=== PATIENT | male | born 1995 | race Caucasian/White ===

== ENCOUNTER 2018-03-27 17:54 | Emergency (ER) | payer BC, SELFPAY ==
[2018-03-27 18:03] VITALS: BP 112/73; PULSE 108; RESP 20; TEMP 36.9; O2SAT 100
--- NOTE | 2018-03-27 19:08 | ED_ITS ---
HPI - Psych <Joaquina Cm PA-C - Last Filed: 03/27/18 22:15> General Chief Complaint: Psychiatric Symptoms Stated Complaint: STATES IN A DARK PLACE,WANTS TO HURT HIMSELF Time Seen by Provider: 03/27/18 18:12 Source: patient Mode of arrival: ambulatory Limitations: no limitations History of Present Illness HPI Narrative: This 23-year-old male with a history of anxiety and depression and some previous suicidal ideation comes in tonight due to worsening anxiety and depression. He states that this has been worse since yesterday when he experienced sleep paralysis and sleep terror, with thoughts of hurting himself or friends. He states that he thinks his sleep is disrupted by working irregular hours and maybe that has contributed. He states that he became ? scared of being impulsive? so talked to a friend who is in medical school home urged him to get to the ED. He states that he has thought of driving his car off of a bridge or [place], and he does not have any family or resources close by as he just moved here last summer, so he parked his car and talked to his friend while he walked here. He states that over the years he tried multiple medications which were not effective, but he did very well with counseling. States that he was actually released from counseling before moving here and has not found a new counselor. He states that he feels more vulnerable here since he does not have that place and does not have family here. He states that he is feeling okay physically aside from feeling anxious. He is not having any new pain, nausea, vomiting, or weakness. He does note that he has a history of hyponatremia remotely which he manages with diet. He states that labs have not been checked in about a year. He denies any drug use at all. He denies any ongoing health issues aside from above. Related Data Home Medications Medication Instructions Recorded Confirmed tazarotene 0.1 % topical gel 1 applictn TOP DAILY 03/10/18 03/27/18 Previous Rx's Medication Instructions Recorded ondansetron 8 mg disintegrating 8 mg PO Q12H PRN #14 tab 03/10/18 tablet Allergies Allergy/AdvReac Type Severity Reaction Status Date / Time formaldehyde Allergy nausea, Verified 03/10/18 09:34 dizziness, trouble breathing Review of Systems <Joaquina Cm PA-C - Last Filed: 03/27/18 22:15> Review of Systems All systems reviewed & are unremarkable except as noted in HPI and below Exam <Joaquina Cm PA-C - Last Filed: 03/27/18 22:15> Narrative Exam Narrative: GENERAL APPEARANCE: Patient sitting comfortably, in no distress. LUNGS: Clear to auscultation bilaterally. HEART: Rate and rhythm regular without murmur, normal S1 and S2, no S3 or S4. ABDOMEN: Soft, nontender, nondistended EXTREMITIES: No cyanosis, no edema NEUROLOGIC: Alert and oriented with normal speech, gait, and coordination PSYCHIATRIC: Patient maintains good eye contact with appropriate affect Initial Vital Signs Initial Vital Signs: Vital Signs Temperature 98.4 F 03/27/18 18:03 Pulse Rate 108 H 03/27/18 18:03 Respiratory Rate 20 03/27/18 18:03 Blood Pressure 112/73 03/27/18 18:03 Pulse Oximetry 100 03/27/18 18:03 <Lobito Quick DO - Last Filed: 03/28/18 02:35> Initial Vital Signs Initial Vital Signs: Vital Signs Temperature 98.4 F 03/27/18 18:03 Pulse Rate 108 H 03/27/18 18:03 Respiratory Rate 20 03/27/18 18:03 Blood Pressure 112/73 03/27/18 18:03 Pulse Oximetry 100 03/27/18 18:03 Course <Joaquina Cm PA-C - Last Filed: 03/27/18 22:15> Hospital Course: Patient appears to have very clear insight into his own illness and previous responses to treatment. He stated that he felt safe and comfortable returning home provided he had a plan for follow-up. He stated that he would be very comfortable returning here if he were feeling acutely worse or more vulnerable again. He stated that he felt out of danger knowing that he had resources and he was scheduled with [facility] tomorrow. He was given the information. He is also establishing with a local PCP. We reviewed lab work including borderline low TSH. This may be variable and can be recheck with his new PCP. Orders Ordered: ED Orders 03/27/18 19:23 [facility]er to [facility] 03/27/18 19:24 Rapid Drug Screen, Urine Stat 03/27/18 19:35 Complete Blood Count AUTO DIFF Stat Comprehensive Metabolic Panel Stat Thyroid Stimulating Hormone Stat Vital Signs - 8 hr 03/27/18 20:44 Pulse Rate 95 H Blood Pressure [Right Arm] 109/81 H Pulse Oximetry 99 <Lobito Quick DO - Last Filed: 03/28/18 02:35> Orders Ordered: ED Orders 03/27/18 19:23 Refer to [facility] Urgent 03/27/18 19:24 Rapid Drug Screen, Urine Stat 03/27/18 19:35 Complete Blood Count AUTO DIFF Stat Comprehensive Metabolic Panel Stat Thyroid Stimulating Hormone Stat Vital Signs - 8 hr 03/27/18 20:44 Pulse Rate 95 H Blood Pressure [Right Arm] 109/81 H Pulse Oximetry 99 MDM - Psych <Joaquina Cm PA-C - Last Filed: 03/27/18 22:15> Lab Data Result diagrams: 03/27/18 19:35 03/27/18 19:35 Lab Results 03/27/18 03/27/18 03/27/18 Range/Units 19:24 19:35 19:35 WBC 11.7 H (4.5-11.0) X10^3/uL RBC 5.69 (4.5-5.9) X10^6/uL Hgb 17.3 (13.5-17.5) g/dL Hct 50.0 (41-53) % MCV 88.0 (80-100) fL MCH 30.4 (26-34) PG MCHC 34.5 (30-36) % RDW 12.8 (11.6-14.8) % Plt Count 209 (150-400) X10^3/uL Neut % (Auto) 79.7 H (50-75) % Lymph % (Auto) 15.1 L (25-40) % [place] % (Auto) 3.9 (3-14) % Eos % (Auto) 1.0 L (2-4) % Baso % (Auto) 0.3 (0-2) % Neut # (Auto) 9300 H (5833-3160) /uL Sodium 144 (137-145) mmol/L Potassium 3.7 (3.4-5.1) mmol/L Chloride 103 (98-107) mmol/L Carbon Dioxide 27 (22-32) mmol/L BUN 14 (9-20) mg/dL Creatinine 0.90 (0.66-1.25) mg/dL Estimated GFR > 60.0 (>60) mL/min BUN/Creatinine Ratio 15.6 (6-22) Glucose 136 H (70-100) mg/dL Calcium 9.7 (8.4-10.2) mg/dL Total Bilirubin 1.0 (0.2-1.3) mg/dL AST 31 (17-59) IU/L ALT 37 (21-72) IU/L Alkaline Phosphatase 62 (38-126) U/L Total Protein 8.0 (6.3-8.2) g/dL Albumin 4.8 (3.5-5.0) g/dL Globulin 3.2 (1.7-4.1) g/dL Albumin/Globulin Ratio 1.5 (1.0-2.8) TSH (0.47-4.68) uIU/mL Urine Opiates Screen Negative (Negative) Ur Oxycodone Screen Negative (Negative) Urine Methadone Screen Negative (Negative) Ur Barbiturates Screen Negative (Negative) U Tricyclic Antidepress Negative (Negative) Ur Phencyclidine Scrn Negative (Negative) Ur Amphetamines Screen Negative (Negative) U Methamphetamines Scrn Negative (Negative) Ur MDMA Scrn (Ecstasy) Negative (Negative) U Benzodiazepines Scrn Negative (Negative) Urine Cocaine Screen Negative (Negative) U Marijuana (THC) Screen Negative (Negative) 03/27/18 Range/Units 19:35 WBC (4.5-11.0) X10^3/uL RBC (4.5-5.9) X10^6/uL Hgb (13.5-17.5) g/dL Hct (41-53) % MCV (80-100) fL MCH (26-34) PG MCHC (30-36) % RDW (11.6-14.8) % Plt Count (150-400) X10^3/uL Neut % (Auto) (50-75) % Lymph % (Auto) (25-40) % [place] % (Auto) (3-14) % Eos % (Auto) (2-4) % Baso % (Auto) (0-2) % Neut # (Auto) (4763-9599) /uL Sodium (137-145) mmol/L Potassium (3.4-5.1) mmol/L Chloride (98-107) mmol/L Carbon Dioxide (22-32) mmol/L BUN (9-20) mg/dL Creatinine (0.66-1.25) mg/dL Estimated GFR (>60) mL/min BUN/Creatinine Ratio (6-22) Glucose (70-100) mg/dL Calcium (8.4-10.2) mg/dL Total Bilirubin (0.2-1.3) mg/dL AST (17-59) IU/L ALT (21-72) IU/L Alkaline Phosphatase (38-126) U/L Total Protein (6.3-8.2) g/dL Albumin (3.5-5.0) g/dL Globulin (1.7-4.1) g/dL Albumin/Globulin Ratio (1.0-2.8) TSH 0.40 L (0.47-4.68) uIU/mL Urine Opiates Screen (Negative) Ur Oxycodone Screen (Negative) Urine Methadone Screen (Negative) Ur Barbiturates Screen (Negative) U Tricyclic Antidepress (Negative) Ur Phencyclidine Scrn (Negative) Ur Amphetamines Screen (Negative) U Methamphetamines Scrn (Negative) Ur MDMA Scrn (Ecstasy) (Negative) U Benzodiazepines Scrn (Negative) Urine Cocaine Screen (Negative) U Marijuana (THC) Screen (Negative) <Lobito Quick, DO - Last Filed: 03/28/18 02:35> Lab Data Lab Results 03/27/18 03/27/18 03/27/18 Range/Units 19:24 19:35 19:35 WBC 11.7 H (4.5-11.0) X10^3/uL RBC 5.69 (4.5-5.9) X10^6/uL Hgb 17.3 (13.5-17.5) g/dL Hct 50.0 (41-53) % MCV 88.0 (80-100) fL MCH 30.4 (26-34) PG MCHC 34.5 (30-36) % RDW 12.8 (11.6-14.8) % Plt Count 209 (150-400) X10^3/uL Neut % (Auto) 79.7 H (50-75) % Lymph % (Auto) 15.1 L (25-40) % [place] % (Auto) 3.9 (3-14) % Eos % (Auto) 1.0 L (2-4) % Baso % (Auto) 0.3 (0-2) % Neut # (Auto) 9300 H (3697-5550) /uL Sodium 144 (137-145) mmol/L Potassium 3.7 (3.4-5.1) mmol/L Chloride 103 (98-107) mmol/L Carbon Dioxide 27 (22-32) mmol/L BUN 14 (9-20) mg/dL Creatinine 0.90 (0.66-1.25) mg/dL Estimated GFR > 60.0 (>60) mL/min BUN/Creatinine Ratio 15.6 (6-22) Glucose 136 H (70-100) mg/dL Calcium 9.7 (8.4-10.2) mg/dL Total Bilirubin 1.0 (0.2-1.3) mg/dL AST 31 (17-59) IU/L ALT 37 (21-72) IU/L Alkaline Phosphatase 62 (38-126) U/L Total Protein 8.0 (6.3-8.2) g/dL Albumin 4.8 (3.5-5.0) g/dL Globulin 3.2 (1.7-4.1) g/dL Albumin/Globulin Ratio 1.5 (1.0-2.8) TSH (0.47-4.68) uIU/mL Urine Opiates Screen Negative (Negative) Ur Oxycodone Screen Negative (Negative) Urine Methadone Screen Negative (Negative) Ur Barbiturates Screen Negative (Negative) U Tricyclic Antidepress Negative (Negative) Ur Phencyclidine Scrn Negative (Negative) Ur Amphetamines Screen Negative (Negative) U Methamphetamines Scrn Negative (Negative) Ur MDMA Scrn (Ecstasy) Negative (Negative) U Benzodiazepines Scrn Negative (Negative) Urine Cocaine Screen Negative (Negative) U Marijuana (THC) Screen Negative (Negative) 03/27/18 Range/Units 19:35 WBC (4.5-11.0) X10^3/uL RBC (4.5-5.9) X10^6/uL Hgb (13.5-17.5) g/dL Hct (41-53) % MCV (80-100) fL MCH (26-34) PG MCHC (30-36) % RDW (11.6-14.8) % Plt Count (150-400) X10^3/uL Neut % (Auto) (50-75) % Lymph % (Auto) (25-40) % [place] % (Auto) (3-14) % Eos % (Auto) (2-4) % Baso % (Auto) (0-2) % Neut # (Auto) (5119-2199) /uL Sodium (137-145) mmol/L Potassium (3.4-5.1) mmol/L Chloride (98-107) mmol/L Carbon Dioxide (22-32) mmol/L BUN (9-20) mg/dL Creatinine (0.66-1.25) mg/dL Estimated GFR (>60) mL/min BUN/Creatinine Ratio (6-22) Glucose (70-100) mg/dL Calcium (8.4-10.2) mg/dL Total Bilirubin (0.2-1.3) mg/dL AST (17-59) IU/L ALT (21-72) IU/L Alkaline Phosphatase (38-126) U/L Total Protein (6.3-8.2) g/dL Albumin (3.5-5.0) g/dL Globulin (1.7-4.1) g/dL Albumin/Globulin Ratio (1.0-2.8) TSH 0.40 L (0.47-4.68) uIU/mL Urine Opiates Screen (Negative) Ur Oxycodone Screen (Negative) Urine Methadone Screen (Negative) Ur Barbiturates Screen (Negative) U Tricyclic Antidepress (Negative) Ur Phencyclidine Scrn (Negative) Ur Amphetamines Screen (Negative) U Methamphetamines Scrn (Negative) Ur MDMA Scrn (Ecstasy) (Negative) U Benzodiazepines Scrn (Negative) Urine Cocaine Screen (Negative) U Marijuana (THC) Screen (Negative) Discharge Plan Departure Patient Disposition: Home, Self-Care Clinical Impression: Depression with suicidal ideation Discharge Date/Time: 03/27/18 21:11 Interventions: ED Discharge Assessment Last Done: 03/27/18 21:10 Instructions: DI for Suicidal Ideation-Adult Activity Restrictions/Additional Instructions: It is reasonable for you to return home now since you are feeling more safe with a follow-up plan in place. Please return any time as we talked about if you are feeling more scared or unsafe at any point and like you might hurt herself and we will help you. If you have any questions or concerns tonight, you can call the crisis line as well. The crisis line number is available 24 hr a day, . You have an appointment with [facility] tomorrow at 2 p.m. [address] [facility], [facility] [phone] I feel confident after talking with you that you will improve with therapy again. You have excellent insight and I believe this will help you as it has in the past. Please call Caroline Hernandez as well to set up an appointment so you have a local PCP. Your thyroid test is on the low side of normal today but these can vary considerably, so it makes sense for you to recheck this with her next month Prescriptions: No Action tazarotene [Tazorac] 0.1 % gel 1 applictn TOP DAILY RF: 0 ondansetron [Zofran ODT] 8 mg tablet,disintegrating 8 mg PO Q12H PRN (Reason: nausea and vomiting) Qty: 14 RF: 0 Referrals: Kimberly Hernandez PA-C [Advanced Practioner Clinician] - <Lobito Quick DO - Last Filed: 03/28/18 02:35> [facility] ED Attending Justinaature Attestation: I was immediately available in the department for consultation. Documentation has been reviewed. I agree with assessment and plan.
[2018-03-27 19:44] LABS: Add Manual Diff / Slide Review NO; Basophils Percent Auto 0.3 % (0-2); Hemoglobin 17.3 g/dL (13.5-17.5); Lymphocytes Percent Auto 15.1 % (25-40); Mean Corpuscular HGB Conc 34.5 % (30-36); Mean Corpuscular Hemoglobin 30.4 PG (26-34); Monocytes Percent Auto 3.9 % (3-14); Neutrophils Absolute Auto 9300 /uL (3000-5900); Neutrophils Percent Auto 79.7 % (50-75); Platelet Count 209 X10^3/uL (150-400); Red Blood Cell Count 5.69 X10^6/uL (4.5-5.9); Red Cell Distribution Width 12.8 % (11.6-14.8); White Blood Cell Count 11.7 X10^3/uL (4.5-11.0)
[2018-03-27 20:01] LABS: Alanine Aminotransferase 37 IU/L (21-72); Albumin 4.8 g/dL (3.5-5.0); Albumin Globulin Ratio 1.5 (1.0-2.8); Alkaline Phosphatase 62 U/L (38-126); Aspartate Aminotransferase 31 IU/L (17-59); BUN Creatinine Ratio 15.6 (6-22); Blood Urea Nitrogen 14 mg/dL (9-20); Calcium 9.7 mg/dL (8.4-10.2); Carbon Dioxide 27 mmol/L (22-32); Chloride 103 mmol/L (98-107); Estimated Glomerular Filt Rate > 60.0 mL/min (>60); Globulin 3.2 g/dL (1.7-4.1); Glucose 136 mg/dL (70-100); HEMOLYSIS < 15 (0-50); Potassium 3.7 mmol/L (3.4-5.1); Sodium 144 mmol/L (137-145)
[2018-03-27 20:13] LABS: Urine Amphetamines Negative (Negative); Urine Barbiturates Negative (Negative); Urine Benzodiazepines Negative (Negative); Urine Cocaine Negative (Negative); Urine MDMA Negative (Negative); Urine Methadone Negative (Negative); Urine Methamphetamines Negative (Negative); Urine Morphine/Opi cutoff 2000 Negative (Negative); Urine Oxycodone Negative (Negative); Urine Phencyclidine Negative (Negative); Urine Tetrahydrocannabinol Negative (Negative); Urine Tricyclic Antidepressant Negative (Negative)
[2018-03-27 20:44] VITALS: BP 109/81; PULSE 95; O2SAT 99
== END 2018-03-27 21:11 | disposition home or self-care (01) ==
PROVIDERS: Emergency Provider Internal Medicine
DX: F32.9 Major depressive disorder, single episode, unspecified (principal); R45.851 Suicidal ideations
CPT/HCPCS: 80053; 80305; 81003; 82075; 84443; 85025; 99283